=== PATIENT | female | born 1990 | race Caucasian/White ===

== ENCOUNTER 2019-03-09 23:34 | Emergency (ER) | payer BC ==
[2019-03-10] MEDS ORDERED: SIMETHICONE 80 MG TAB ONE (00:39)
[2019-03-10 01:20] LABS: Urine Blood TRACE (NEG); Urine Glucose NEGATIVE (NEG); Urine Protein 1+ (NEG); Urine Specific Gravity 1.025 (1.005-1.030); Urine pH 5.5 (5.0-7.0)
[2019-03-10 01:21] LABS: Calcium Oxalate Crystals- Ur MODERATE (NONE SEEN); Urine Culture Reflex Order NOT NEEDED; Urine Mucus 2+ /HPF (NONE SEEN)
[2019-03-10 01:22] LABS: Urine Bacteria <20 /HPF (<20); Urine RBC NONE SEEN /HPF (NONE SEEN)
[2019-03-10] MEDS ORDERED: FENTANYL CITR 100 MCG/2 ML ONE (01:35)
--- NOTE | 2019-03-10 02:30 | ER ---
Nurse's Notes [facility] Name: Emily Mills Age: 28 yrs Sex: Female : 1990 Arrival Date: 03/09/2019 Time: 23:39 Bed 5 Private MD: Diagnosis: Gas pain Presentation: 03/10 00:08 Presenting complaint: Patient states: Epigastric pain/pressure that began tonight; lp1 States taking Vancomycin 125mg QID since Saturday for diagnosis of Staph infection in stool; States last BM was 2 days ago; Denies any vomiting. Transition of care: patient was not received from another setting of care. Onset of symptoms was March 09, 2019. Risk Assessment: Do you want to hurt yourself or someone else? Patient reports no desire to harm self or others. Initial Sepsis Screen: Does the patient meet any 2 criteria? No. Patient's initial sepsis screen is negative. Does the patient have a suspected source of infection? No. Patient's initial sepsis screen is negative. Care prior to arrival: None. 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 - Social history:: Smoking status: Patient uses tobacco products, smokes one pack cigarettes per day. - Ebola Screening: : No symptoms or risks identified at this time. Screenin:11 Abuse screen: Denies threats or abuse. Denies injuries from another. Nutritional lp1 screening: No deficits noted. Tuberculosis screening: No symptoms or risk factors identified. Fall Risk None identified. Assessment: 00:15 General: Appears uncomfortable, Behavior is appropriate for age. Pain: Complains of lp1 pain in epigastric area Pain currently is 8 out of 10 on a pain scale. Quality of pain is described as sharp. Neuro: No deficits noted. Cardiovascular: No deficits noted. Respiratory: No deficits noted. GI: Bowel sounds present X 4 quads. Abdomen is tender to palpation in epigastric area Patient currently denies diarrhea, nausea, vomiting. : No signs and/or symptoms were reported regarding the genitourinary system. EENT: No signs and/or symptoms were reported regarding the EENT system. Derm: Skin is pink, warm \T\ dry. Musculoskeletal: No deficits noted. 01:20 Reassessment: Patient states no relief of abdominal pain; Provider notified; Patient lp1 refuses narcotics; To CT at this time. 02:30 Reassessment: Reassessment: Patient appears in no apparent distress at this time. lp1 Patient is alert, oriented x 3, equal unlabored respirations, skin warm/dry/pink. Patient states feeling better. Vital Signs: 00:09 BP 141 / 100; Pulse 93; Resp 18; Temp 98.4(O); Pulse Ox 97% on R/A; Weight 61.23 kg; lp1 Height 5 ft. 2 in. (157.48 cm); Pain 7/10; 02:30 BP 121 / 88; Pulse 79; Resp 16; Pulse Ox 99% on R/A; Pain 5/10; lp1 00:09 Body Mass Index 24.69 (61.23 kg, 157.48 cm) lp1 ED Course: 03/09 23:39 Patient arrived in ED. es 23:48 Carrie Vasquez FNP-C [facility]. snw 23:48 Triston Diez MD is Attending Physician. snw 03/10 00:00 Sarahi Jha, MARCIA is Primary Nurse. lp1 00:09 Triage completed. lp1 00:10 Arm band placed on left wrist. lp1 00:11 Patient has correct armband on for positive identification. lp1 01:02 Urine Culture Sent. mw2 01:[address] In Process Unspecified. EDMS 02:15 Harsha Valencia MD is Referral Physician. snw 02:48 No provider procedures requiring assistance completed. Patient did not have IV access lp1 during this emergency room visit. Administered Medications: 00:27 Drug: Simethicone 120 mg Route: PO; lp1 01:18 Follow up: Response: Pain is unchanged, physician notified lp1 02:14 Not Given (Patient Refused): fentaNYL (PF) 50 mcg IM once snw 02:43 Drug: TORadol 30 mg Route: IM; Site: right deltoid; lp1 02:43 Follow up: Response: Medication administered at discharge. lp1 Outcome: 02:15 Discharge ordered by . snw 02:48 Discharged to home ambulatory, with significant other. lp1 02:48 Condition: good 02:48 Discharge instructions given to patient, Instructed on discharge instructions, follow up and referral plans. medication usage, Demonstrated understanding of instructions, follow-up care, medications, Prescriptions given X 1. 02:48 Patient left the ED. lp1 Signatures: Dispatcher [employer] EDTX Carrie Vasquez, STRAW BALER-C STRAW BALER-Csnw Ledy Momin Laura, RN RN lp1 Thierry Fuentes mw2 Corrections: (The following items were deleted from the chart) 02:47 01:30 Reassessment: Patient states no relief of abdominal pain; Provider notified lp1 lp1
--- NOTE | 2019-03-10 02:32 | EDPHYS ---
Physician Documentation [facility] Name: Emily Mills Age: 28 yrs Sex: Female : 1990 Arrival Date: 03/09/2019 Time: 23:39 Bed 5 Private MD: ED Physician Triston Diez HPI: 03/10 00:04 This 28 yrs old Female presents to ER via Unassigned with complaints of snw Abdominal Pain, LT FLANK PAIN TENDER TO TOUCH. 00:04 The patient presents with abdominal pain in the left upper quadrant, in the left lower snw quadrant. Onset: The symptoms/episode began/occurred suddenly. The symptoms do not radiate. Associated signs and symptoms: Pertinent positives: constipation, on Vanco po for "staph" in stool. Appt with Dr. Valencia on . The symptoms are described as crampy, sharp. Severity of pain: At its worst the pain was severe. The patient has not experienced similar symptoms in the past. multiple visits for abd pain recently. Appt with Dr. Valencia on . 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 - Social history:: Smoking status: Patient uses tobacco products, smokes one pack cigarettes per day. - Ebola Screening: : No symptoms or risks identified at this time. ROS: 00:03 Constitutional: Negative for fever, chills, and weight loss, Eyes: Negative for injury, snw pain, redness, and discharge, ENT: Negative for injury, pain, and discharge, Neck: Negative for injury, pain, and swelling, Cardiovascular: Negative for chest pain, palpitations, and edema, Respiratory: Negative for shortness of breath, cough, wheezing, and pleuritic chest pain, Back: Negative for injury and pain, : Negative for injury, bleeding, discharge, and swelling, MS/Extremity: Negative for injury and deformity, Skin: Negative for injury, rash, and discoloration, Neuro: Negative for headache, weakness, numbness, tingling, and seizure. 00:03 Abdomen/GI: Positive for abdominal pain, abdominal cramps, abdominal distension, of the epigastric area and left upper quadrant. Exam: 00:03 Constitutional: This is a well developed, well nourished patient who is awake, alert, snw and in no acute distress. Head/Face: Normocephalic, atraumatic. Eyes: Pupils equal round and reactive to light, extra-ocular motions intact. Lids and lashes normal. Conjunctiva and sclera are non-icteric and not injected. Cornea within normal limits. Periorbital areas with no swelling, redness, or edema. ENT: Nares patent. No nasal discharge, no septal abnormalities noted. Tympanic membranes are normal and external auditory canals are clear. Oropharynx with no redness, swelling, or masses, exudates, or evidence of obstruction, uvula midline. Mucous membranes moist. Neck: Trachea midline, no thyromegaly or masses palpated, and no cervical lymphadenopathy. Supple, full range of motion without nuchal rigidity, or vertebral point tenderness. No Meningismus. Chest/axilla: Normal chest wall appearance and motion. Nontender with no deformity. No lesions are appreciated. Cardiovascular: Regular rate and rhythm with a normal S1 and S2. No gallops, murmurs, or rubs. Normal PMI, no JVD. No pulse deficits. Respiratory: Lungs have equal breath sounds bilaterally, clear to auscultation and percussion. No rales, rhonchi or wheezes noted. No increased work of breathing, no retractions or nasal flaring. Back: No spinal tenderness. No costovertebral tenderness. Full range of motion. Skin: Warm, dry with normal turgor. Normal color with no rashes, no lesions, and no evidence of cellulitis. MS/ Extremity: Pulses equal, no cyanosis. Neurovascular intact. Full, normal range of motion. Neuro: Awake and alert, GCS 15, oriented to person, place, time, and situation. Cranial nerves II-XII grossly intact. Motor strength 5/5 in all extremities. Sensory grossly intact. Cerebellar exam normal. Normal gait. Psych: Awake, alert, with orientation to person, place and time. Behavior, mood, and affect are within normal limits. 00:03 Abdomen/GI: Inspection: abdomen appears normal, Bowel sounds: normal, Palpation: mild abdominal tenderness, in the left upper quadrant. Vital Signs: 00:09 BP 141 / 100; Pulse 93; Resp 18; Temp 98.4(O); Pulse Ox 97% on R/A; Weight 61.23 kg; lp1 Height 5 ft. 2 in. (157.48 cm); Pain 7/10; 02:30 BP 121 / 88; Pulse 79; Resp 16; Pulse Ox 99% on R/A; Pain 5/10; lp1 00:09 Body Mass Index 24.69 (61.23 kg, 157.48 cm) lp1 MDM: 03/09 23:49 Patient medically screened. snw 03/10 02:18 Data reviewed: vital signs, nurses notes. Data interpreted: Pulse oximetry: on room air snw is 97 %. Interpretation: normal. Counseling: I had a detailed discussion with the patient and/or guardian regarding: the historical points, exam findings, and any diagnostic results supporting the discharge/admit diagnosis, lab results, radiology results, the need for outpatient follow up, to return to the emergency department if symptoms worsen or persist or if there are any questions or concerns that arise at home. Special discussion: Based on the patient's Hx, exam, and Dx evaluation, there is no indication for emergent surgery or inpatient Tx. It is understood by the patient/guardian that if the Sx's persist or worsen they need to return immediately for re-evaluation. Based on the history and exam findings, there is no indication for further emergent testing or inpatient evaluation. I discussed with the patient/guardian the need to see the abrasive band winder for further evaluation of the symptoms. 03/09 23:49 Order name: Urine Culture [facility] 03/09 23:49 Order name: Urine Microscopic Only; Complete Time: : [facility] 03/09 23:50 Order name: Urine Culture [facility] 03/10 00:35 Order name: Urine Dipstick--Ancillary (enter results); Complete Time: [facility] [place] 03/10 00:35 Order name: Urine --Ancillary (enter results); Complete Time: : [facility] 03/10 01:11 Order name: Stone Protocol CT [facility] 03/09 23:49 Order name: Urine Test (obtain specimen); Complete Time: 00:37 snw 03/09 23:49 Order name: Urine Dipstick-Ancillary (obtain specimen); Complete Time: 00:37 snw Administered Medications: 00:27 Drug: Simethicone 120 mg Route: PO; lp1 01:18 Follow up: Response: Pain is unchanged, physician notified lp1 02:14 Not Given (Patient Refused): fentaNYL (PF) 50 mcg IM once snw 02:43 Drug: TORadol 30 mg Route: IM; Site: right deltoid; lp1 02:43 Follow up: Response: Medication administered at discharge. lp1 Disposition: 06:54 Co-signature as Attending Physician, Triston Diez MD I agree with the assessment and murray plan of care. Disposition: 03/10/19 02:15 Discharged to Home. Impression: Gas pain. - Condition is Stable. - Discharge Instructions: Abdominal Pain, Adult, Intestinal Gas and Gas Pains, Pediatric. - Prescriptions for Gas- X Ultra-Strength - take 1 unit by ORAL route 3-4 times daily; 1 box. - Medication Reconciliation Form, Thank You Letter, Antibiotic Education, Prescription Opioid Use, Work release form, Family Work Release form. - Follow up: Harsha Valencia MD; When: 1 - 2 days; Reason: Recheck today's complaints, Continuance of care, Re-evaluation by your physician. Signatures: Dispatcher [employer] Triston Ibarra MD MD cha Therrien, Shelly, [employer]-C [employer]-Csnw Sarahi Jha, RN RN lp1 Corrections: (The following items were deleted from the chart) 02:48 02:15 03/10/2019 02:15 Discharged to Home. Impression: Gas pain. Condition is Stable. lp1 Forms are Medication Reconciliation Form, Thank You Letter, Antibiotic Education, Prescription Opioid Use. Follow up: Harsha Valencia; When: 1 - 2 days; Reason: Recheck today's complaints, Continuance of care, Re-evaluation by your physician. snw
[2019-03-10] MEDS ORDERED: KETOROLAC 30 MG/ML INJ ONE (02:53)
--- NOTE | 2019-03-10 10:31 | RAD REPORT ---
EXAM DESCRIPTION: CT - Stone Protocol - 03/10/2019 3:10 am CLINICAL HISTORY: ABD PAIN COMPARISON: CT abdomen and pelvis with contrast 03/03/2019. TECHNIQUE: Axial unenhanced [address] imaging of the abdomen and pelvis performed. Reformatted coronal and sagittal images reviewed. A dose reduction technique was utilized with automated exposure control according to patient size. FINDINGS: LOWER THORAX: There are vague groundglass densities within the medial aspect of the right and left lower lobe and right middle lobe. No pleural fluid. Heart is normal in size. ABDOMEN: LIVER/GALLBLADDER: Focal fatty change adjacent to the falciform ligament within the left lobe the li tasha. Normal liver size and contour. Gallbladder is contracted. No gallstones. SPLEEN/PANCREAS: Normal spleen. Normal pancreas. KIDNEYS/ADRENAL GLANDS: Normal adrenal glands. Questionable punctate 1 mm right renal pelvic calculi . No hydronephrosis. No renal mass in either kidney. No perinephric edema. RETROPERITONEAL VESSELS/NODES: Normal caliber abdominal aorta and inferior vena cava. No adenopathy. BOWEL: Normal stomach. Small bowel caliber is within normal limits. Normal appendix in the right hem ipelvis. Normal colon. MESENTERY/PERITONEUM: No adenopathy, ascites, or free air. PELVIS: BLADDER: Normal bladder. GENITAL ORGANS: Normal uterus and ovaries. PERITONEUM: No pelvic free fluid or adenopathy. BONES AND SOFT TISSUES: There is a pars defect bilaterally at L5. 5 mm anterior cervical fixation of L5 on S1. Intact remaining bony pelvis. Normal hips. IMPRESSION: 1. No acute finding within the abdomen or pelvis. 2. Possible punctate 1 mm right renal pelvic calculi. No hydronephrosis. 3. Faint groundglass densities medial right and left lower lobe and right middle lobe compatible with mild small airways disease. 4. Bilateral L5 spondylolysis with grade 1 spondylolisthesis of L5 on S1. Electronically signed by: Janine Post DO 03/10/2019 1:58 AM CDT Due to temporary technical issues with the PACS/Fluency reporting system, reports are being signed by the in house radiologist as a courtesy to ensure prompt reporting. The interpreting radiologist is f ully responsible for the content of the report.
== END 2019-03-10 02:48 | disposition home or self-care (01) ==
LOC: ER 23:34
DX: R14.1 Gas pain (principal); I10 Essential (primary) hypertension; F17.210 Nicotine dependence, cigarettes, uncomplicated
CPT/HCPCS: 74176; 76377; 81003; 81015; 81025; 87086; 87088; 96372; J3010